=== PATIENT | female | born 1970 | race Caucasian/White ===

== ENCOUNTER → 2024-11-30 | Outpatient (CLI) | payer MEDICAID, SELFPAY ==
--- NOTE | 2024-11-30 13:30 | XR_ITS ---
Examination: CT abdomen and pelvis without contrast. Coronal 3-D reconstructions. Sagittal 2-D reconstructions. Date and time of exam:November 30, 2024 1229 hours Comparison 03/13/2024 INDICATIONS: Lower abdominal pain and bloating beginning one year ago CTDI: vol (mGy): 4.93 DLP: (mGycm): 263 Technique: Axial images of the abdomen have been obtained, 3 mm slice thickness Intravenous contrast material has not been administered. Low dose protocols were performed. One or more of the following dose reduction techniques were used; automated exposure control, adjustment of the mA and/or KV according to patient size, use of iterative reconstruction technique. Findings: No focal liver or splenic lesions No gallstones No pancreatic or adrenal mass No renal or ureteral calculi, no hydronephrosis Aorta calcification no aneurysmal dilatation Normal appendix Mildly fluid distended small bowel loops No bowel obstruction Urinary bladder intact Atrophic uterus No pelvic mass Moderate osteopenia IMPRESSION: Mildly fluid distended small bowel loops, differential would include ileus, enteritis such as Crohn's disease
== END | disposition home or self-care (01) ==
PROVIDERS: PCP Physician Assistant; Referring Provider Physician Assistant; Visit Provider Physician Assistant
DX: K63.89 Other specified diseases of intestine (principal)
CPT/HCPCS: 74176